=== PATIENT | male | born 1955 | race African-American/Black ===

== ENCOUNTER 2023-11-20 18:57 | Emergency (ER) | payer MEDICAID, OTHER ==
[~2023-11-20] VITALS: Ht 170.2 cm; Wt 86.2 kg
[~2023-11-20 18:57] MED LIST: CLOT15CR8; FURO20TA4; IBUP-2028 PO
[2023-11-20 19:08] VITALS: BP 141/72; PULSE 75; RESP 16; TEMP 98.4; O2SAT 100
[2023-11-20] MEDS ORDERED: CETI5TAB5 MT (23:21)
[2023-11-20] MEDS ORDERED: DEXAMETHASONE 2MG TABLET PO ONE (23:30)
== END 2023-11-21 01:05 | disposition home or self-care (01) ==
LOC: ER 18:57
DX: R21 Rash and other nonspecific skin eruption (principal); K59.00 Constipation, unspecified; Z87.440 Personal history of urinary (tract) infections
CPT/HCPCS: 99281; J8540